=== PATIENT | female | born 1965 | race Caucasian/White ===

== ENCOUNTER 2023-01-04 07:28 | Outpatient (CLI) | payer OTHER, SELFPAY | END 2023-01-04 07:29 | disposition home or self-care (01) | LOC: OP CLINIC 07:32 | PROVIDERS: Visit Provider Surgery | DX: Z12.11 Encounter for screening for malignant neoplasm of colon (principal); K63.5 Polyp of colon; K57.30 Diverticulosis of large intestine without perforation or abscess without bleeding; K62.1 Rectal polyp; Z83.71 Family history of colonic polyps | CPT/HCPCS: 45380; 45385; 88305; 99153; J2250; J3010 ==